=== PATIENT | female | born 1980 | race Caucasian/White ===

== ENCOUNTER 2018-01-19 09:10 | Outpatient (CLI) | payer BC | END 2018-01-19 09:11 | disposition home or self-care (01) | LOC: BICRAD 09:10 | PROVIDERS: ATTEND Specialist | DX: M54.9 Dorsalgia, unspecified (principal) | CPT/HCPCS: 72100 ==

== ENCOUNTER 2020-06-19 10:13 | Outpatient (CLI) | payer BC ==
--- NOTE | 2020-06-19 10:35 | RAD ---
EXAM: 3 views of the right foot HISTORY: Foot pain COMPARISON: None FINDINGS: 3 views of the right foot shows no evidence of acute fracture or dislocation. No soft tissu e swelling is seen. No degenerative changes are present. IMPRESSION: No evidence of acute osseous abnormality.
== END 2020-06-19 10:14 | disposition home or self-care (01) ==
LOC: BICRAD 10:13
PROVIDERS: ATTEND Specialist
DX: M79.671 Pain in right foot (principal)